=== PATIENT | female | born 1960 | race African-American/Black ===

== ENCOUNTER 2017-01-20 17:30 | Emergency (ER) | payer OTHER, MEDICAID ==
[2017-01-20 17:39] VITALS: BP 151/89
--- NOTE | 2017-01-20 18:47 | ER Document Report ---
HPI - HPI Pain Level: 3 Notes: Patient is a 56-year-old female who presents to the ED complaining of right trapezius muscle tingling along with her right shoulder extends down into the biceps x1d. Patient is not aware of any injury to her shoulder or her neck. Patient states she still able move her head around without any problems along with her arm. She has no sharp pain. Pt states that her bra strap does irritate her skin. Pt states her shoulder feels sore. Her PCM is Dr. Amato through [facility]. Denies any IV drug use or smoking history. Patient states she does have hypertension but no diabetes or other medical conditions. No medicine allergies. No other p.o. daily medications aside from her blood pressure medication. Pt states she is able to ambulate normally without any chest pain, sob, dyspnea. Denies any headache, URI, fever, sore throat, ear pain, dizziness, cp, palp, syncope, cough, sob, wheeze, abd pain, n/v/d, dysuria , joint pains, or rash. Pt is unaware if she had the chicken pox as a child/in the past. No recent illness. Otherwise patient is feeling "normal." - ROS Notes: REVIEW OF SYSTEMS: CONSTITUTIONAL : Denies fever, chills, or sweats. Denies recent illness. EENT: Denies eye, ear, throat, or mouth pain or symptoms. Denies nasal or sinus congestion or discharge. Denies throat, tongue, or mouth swelling or difficulty swallowing. CARDIOVASCULAR: Denies chest pain. Denies palpitations or racing or irregular heart beat. Denies ankle edema. RESPIRATORY: Denies cough, cold, or chest congestion. Denies shortness of breath, difficulty breathing, or wheezing. GASTROINTESTINAL: Denies abdominal pain or distention. Denies nausea, vomiting , or diarrhea. Denies blood in vomitus, stools, or per rectum. Denies black, tarry stools. Denies constipation. GENITOURINARY: Denies difficulty urinating, painful urination, burning, frequency, blood in urine, or discharge. MUSCULOSKELETAL: see hpi SKIN: Denies rash, lesions or sores. NEUROLOGICAL: Denies confusion or altered mental status. Denies passing out or loss of consciousness. Denies dizziness or lightheadedness. Denies headache. Denies weakness or paralysis or loss of use of either side. Denies problems with gait or speech. Denies seizures. See HPI. PSYCHIATRIC: Denies anxiety or stress. Denies depression, suicidal ideation, or homicidal ideation. ALL OTHER SYSTEMS REVIEWED AND NEGATIVE. Dictation was performed using [employer] voice recognition software - REPRODUCTIVE Reproductive: DENIES: : - DERM Skin Color: Normal Past Medical History - Social History Smoking Status: Never Smoker Family History: CAD, DM, Hypertension, Malignancy Patient has suicidal ideation: No Patient has homicidal ideation: No - Past Medical History Cardiac Medical History: Denies: Hx Coronary Artery Disease, Hx Heart Attack, Hx Hypertension Pulmonary Medical History: Reports: Hx Asthma - inhalers, Hx Bronchitis - hx of Denies: Hx COPD, Hx Pneumonia Neurological Medical History: Denies: Hx Cerebrovascular Accident, Hx Seizures Renal/ Medical History: Denies: Hx Peritoneal Dialysis Musculoskeltal Medical History: Reports Hx Arthritis - rt knee Skin Medical History: Reports Hx Eczema Past Surgical History: Reports: Hx Orthopedic Surgery - knee - Immunizations Hx Diphtheria, Pertussis, Tetanus Vaccination: Yes Vertical Provider Document - CONSTITUTIONAL Agree With Documented VS: Yes Notes: PHYSICAL EXAMINATION: GENERAL: Well-appearing, well-nourished and in no acute distress. Obese. HEAD: Atraumatic, normocephalic. Non-tender. EYES: Pupils equal round and reactive to light, extraocular movements intact, sclera anicteric, conjunctiva are normal. ENT: EAC clear b/l. TM's intact b/l without erythema, fluid, or perforation. Nares patent and without discharge. oropharynx clear without exudates. No tonsilar hypertrophy or erythema. Moist mucous membranes. No sinus tenderness. NECK: Normal range of motion, supple without lymphadenopathy. No rigidity/ meningismus or tenderness. Spurling negative. LUNGS: Breath sounds clear to auscultation bilaterally and equal. No wheezes rales or rhonchi. HEART: Regular rate and rhythm without murmurs, rubs, gallops. ABDOMEN: Soft, nontender, nondistended abdomen. No guarding, no rebound. No masses appreciated. Normal bowel sounds present. No CVA tenderness bilaterally. Musculoskeletal: UE's b/l: FROM to passive/active. Strength 5+/5. Non-tender to shoulder/arm/neck. + mild tenderness to trigger point medial scapular border (rt). [employer] strength intact. N/V intact. Extremities: No cyanosis, clubbing, or edema b/l. Peripheral pulses 2+. Capillary refill less than 2 seconds. NEUROLOGICAL: MMSE intact. Cranial nerves grossly intact. Normal speech, normal gait. Normal sensory, motor exams PSYCH: Normal mood, normal affect. SKIN: Warm, Dry, normal turgor, no rashes or lesions noted. - INFECTION CONTROL TRAVEL OUTSIDE OF THE [place] IN LAST 30 DAYS: No - RESPIRATORY O2 Sat by Pulse Oximetry: 98 Course - Re-evaluation Re-evalutation: 01/20/17 18:47 Patient is an afebrile, well-hydrated, 56-year-old female presents with suspected neuritis of her right upper extremity. Vitals are stable. PE otherwise unremarkable for any focal neurological deficits. Low suspicion for any ACS, PE, meningismus, severe disc herniation leading to severe stenosis/ nerve compromise, epidural mass lesion, dissection. I question if this is the start of shingles. Also in my differential would be muscle spasming/trigger point induced, and/or mild c-spine etiology. Pt is neurovascularly intact to the UE b/l. No XR warranted today as exam was unremarkable for her cervical spine and pt neurologically intact. Conservative measures for symptoms. Advised that I would like her to get a f/u with her PCM in 2-3 days. Return to the ED with any worsening/concerning symptoms otherwise as reviewed. Pt in agreement. - Vital Signs Vital signs: Temp Pulse Resp BP Pulse Ox 98.9 F 78 16 151/89 H 98 01/20/17 17:36 01/20/17 17:36 01/20/17 17:36 01/20/17 17:36 01/20/17 17:36 Discharge - Discharge Clinical Impression: Neuralgia and neuritis, unspecified Condition: Stable Disposition: HOME, SELF-CARE Additional Instructions: Rest, Ice Tylenol/ibuprofen as needed Light stretches daily Strength exercises as able May use voltaren gel to help with inflammation pain/discomfort. Moist heat and massage may help Monitor for any development of rash and seek medical attention if anything appears F/u with your PCP in 2-3 days for a recheck Consider consult(s) with Orthopedics for ongoing/worsening symptoms Return to the ED with any worsening symptoms and/or development of fever, headache, chest pain, palpitations, syncope, shortness of breath, trouble breathing, abdominal pain, n/v/d, blood in stool/urine, loss of control of bowel /bladder, urinary retention, muscle weakness/paralysis, worsening numbness/ tingling, or other worsening symptoms that are concerning to you. Prescriptions: Diclofenac Sodium [Voltaren] 4 gm TP QID PRN #100 gel..gm. PRN Reason: Forms: Elevated Blood Pressure
== END 2017-01-20 18:59 | disposition home or self-care (01) ==
LOC: ER 17:30
DX: M79.2 Neuralgia and neuritis, unspecified (principal); I10 Essential (primary) hypertension; Z79.899 Other long term (current) drug therapy; J45.909 Unspecified asthma, uncomplicated
CPT/HCPCS: 99283

== ENCOUNTER 2017-03-25 15:51 | Emergency (ER) | payer OTHER, MEDICAID ==
[2017-03-25 17:14] LABS: APPEARANCE,URINE SLIGHTLY-CLOUDY; BILIRUBIN,URINE NEGATIVE (NEGATIVE); GLUCOSE, URINE NEGATIVE (NEGATIVE); KETONES,URINE NEGATIVE (NEGATIVE); LEUKOCYTE ESTERASE,URINE NEGATIVE (NEGATIVE); NITRITE,URINE NEGATIVE (NEGATIVE); PROTEIN,URINE NEGATIVE (NEGATIVE); URINE SPECIFIC GRAVITY 1.015
--- NOTE | 2017-03-25 17:31 | ER Document Report ---
ED Neck/Back Problem - General Chief Complaint: Back Pain Stated Complaint: BACK PAIN Time Seen by Provider: 03/25/17 16:18 Mode of Arrival: Ambulatory Information source: Patient Notes: Patient is a 56-year-old female who presents to the ER today for 3 days of right lower back pain that does not radiate anywhere. Patient denies any injury , states that it hurts with movement. She denies any numbness, tingling, loss of bladder or bowel function. She denies any chronic back issues. She denies any fevers, chills, headache. TRAVEL OUTSIDE OF THE [place] IN LAST 30 DAYS: No - Related Data Allergies/Adverse Reactions: No Known Allergies Allergy (Verified 01/20/17 17:36) Past Medical History - General Information source: Patient - Social History Smoking Status: Former Smoker Chew tobacco use (# tins/day): No Frequency of alcohol use: None Drug Abuse: None Family History: CAD, DM, Hypertension, Malignancy - Past Medical History Cardiac Medical History: Denies: Hx Coronary Artery Disease, Hx Heart Attack, Hx Hypertension Pulmonary Medical History: Reports: Hx Asthma - inhalers, Hx Bronchitis - hx of Denies: Hx COPD, Hx Pneumonia Neurological Medical History: Denies: Hx Cerebrovascular Accident, Hx Seizures Renal/ Medical History: Denies: Hx Peritoneal Dialysis Musculoskeltal Medical History: Reports Hx Arthritis - rt knee Skin Medical History: Reports Hx Eczema Past Surgical History: Reports: Hx Orthopedic Surgery - knee - Immunizations Hx Diphtheria, Pertussis, Tetanus Vaccination: Yes Review of Systems - Review of Systems Constitutional: No symptoms reported EENT: No symptoms reported Cardiovascular: No symptoms reported Respiratory: No symptoms reported Gastrointestinal: No symptoms reported Genitourinary: No symptoms reported Female Genitourinary: No symptoms reported Musculoskeletal: See HPI Skin: No symptoms reported Hematologic/Lymphatic: No symptoms reported Neurological/Psychological: No symptoms reported Physical Exam - Vital signs Vitals: Temp Pulse Resp BP Pulse Ox 97.9 F 74 20 157/90 H 98 03/25/17 15:57 03/25/17 15:57 03/25/17 15:57 03/25/17 15:57 03/25/17 15:57 - Notes Notes: PHYSICAL EXAMINATION: GENERAL: Mildly uncomfortable appearing, but in no acute distress. HEAD: Atraumatic, normocephalic. EYES: Pupils equal round and reactive to light, extraocular movements intact, sclera anicteric, conjunctiva are normal. NECK: Normal range of motion, supple without lymphadenopathy LUNGS: CTAB and equal. No wheezes rales or rhonchi. HEART: Regular rate and rhythm without murmurs ABDOMEN: Soft, no tenderness. No guarding, no rebound BACK: Right paravertebral tenderness to the lumbar area, no vertebral tenderness , normal ROM GI/: no CVA tenderness EXTREMITIES: Normal range of motion, no pitting edema. No cyanosis. NEUROLOGICAL: Cranial nerves grossly intact. Normal sensory/motor exams. PSYCH: Normal mood, normal affect. SKIN: Warm, Dry, normal turgor, no rashes or lesions noted Course - Re-evaluation Re-evalutation: 03/25/17 17:29 Patient is not tender over the spine, urinalysis is negative for infection or blood today. - Vital Signs Vital signs: Temp Pulse Resp BP Pulse Ox 97.9 F 74 20 157/90 H 98 03/25/17 15:57 03/25/17 15:57 03/25/17 15:57 03/25/17 15:57 03/25/17 15:57 - Laboratory Laboratory results interpreted by me: 03/25/17 16:50 Urine Urobilinogen 2.0 H Discharge - Discharge Clinical Impression: Low back pain Qualifiers: Chronicity: acute Back pain laterality: right Sciatica presence: without sciatica Qualified Code(s): M54.5 - Low back pain Condition: Stable Disposition: HOME, SELF-CARE Instructions: Warm Packs ([facility]), Ice Packs ([facility]) Additional Instructions: Return immediately for any new or worsening symptoms. Follow up with primary care provider, call tomorrow to make followup appointment. Prescriptions: Cyclobenzaprine HCl [Flexeril 10 mg Tablet] 10 mg PO TIDP PRN #15 tab PRN Reason: Ibuprofen [Motrin 600 Mg Tablet] 600 mg PO TID #15 tablet Forms: Return to Work Referrals: FILOMENA LINDSAY DO [Primary Care Provider] - Follow up as needed
[2017-03-25 17:51] VITALS: BP 140/76
== END 2017-03-25 17:52 | disposition home or self-care (01) ==
LOC: ER 15:51
DX: M54.5 Low back pain (principal); Z87.891 Personal history of nicotine dependence
CPT/HCPCS: 81001; 99283

== ENCOUNTER 2018-02-03 09:57 | Emergency (ER) | payer MEDICAID, OTHER ==
--- NOTE | 2018-02-03 10:40 | ER Document Report ---
ED Medical Screen (RME) - General Chief Complaint: Lip Swelling Stated Complaint: SWOLLEN LIP Time Seen by Provider: 02/03/18 10:35 TRAVEL OUTSIDE OF THE [place] IN LAST 30 DAYS: No - HPI Notes: 02/03/18 10:37 Swelling of the upper lip since Sunday has been progressive patient does have a small "bump" that has formed on the right side of the philtrum. Patient otherwise states no shortness of breath or difficulty swallowing. Patient is on hydrochlorothiazide for blood pressure meds DELANEY inhibitor's no arbs 02/03/18 10:40 - Related Data Allergies/Adverse Reactions: No Known Allergies Allergy (Verified 02/03/18 09:58) Past Medical History - Social History Chew tobacco use (# tins/day): No Frequency of alcohol use: None Drug Abuse: None - Past Medical History Cardiac Medical History: Reports: Hx Hypertension Denies: Hx Coronary Artery Disease, Hx Heart Attack Pulmonary Medical History: Reports: Hx Asthma - inhalers, Hx Bronchitis - hx of Denies: Hx COPD, Hx Pneumonia Neurological Medical History: Denies: Hx Cerebrovascular Accident, Hx Seizures Renal/ Medical History: Denies: Hx Peritoneal Dialysis Musculoskeltal Medical History: Reports Hx Arthritis - rt knee Skin Medical History: Reports Hx Eczema Past Surgical History: Reports: Hx Orthopedic Surgery - knee - Immunizations Hx Diphtheria, Pertussis, Tetanus Vaccination: Yes Review of Systems - Review of Systems Constitutional: Other - swelling of the lips Physical Exam - Vital signs Vitals: Temp Pulse Resp BP Pulse Ox 98.6 F 87 20 146/102 H 97 02/03/18 10:08 02/03/18 10:08 02/03/18 10:08 02/03/18 10:08 02/03/18 10:08 - HEENT Notes: Swelling of the upper lip with small bump to the right philtrum Course - Re-evaluation Re-evalutation: 02/03/18 10:40 We will give Benadryl Solu-Medrol Pepcid although the swelling may be due to the bump to the right of the philtrum will send the patient back to the back for further monitoring. - Vital Signs Vital signs: Temp Pulse Resp BP Pulse Ox 98.6 F 87 20 146/102 H 97 02/03/18 10:08 02/03/18 10:08 02/03/18 10:08 02/03/18 10:08 02/03/18 10:08 Doctor's Discharge - Discharge Referrals: FILOMENA LINDSAY, [Primary Care Provider] - Follow up as needed
[2018-02-03] MEDS: DIPHENHYDRAMINE HCL 50 MG/ML VIAL IV ONE (11:10)
[2018-02-03] MEDS: METHYLPREDNISOLONE INJ 125 MG/2 ML SDV IV ONE (11:10)
[2018-02-03] MEDS: FAMOTIDINE INJ/PF 20 MG/2 ML SDV IV ONE (11:10)
[2018-02-03 11:35] LABS: ABSOLUTE EOSINOPHILS # (AUTO) 0.1 10^3/uL (0.0-0.6); ABSOLUTE LYMPHOCYTES (AUTO) 1.5 10^3/uL (0.5-4.7); ABSOLUTE MONOCYTES (AUTO) 0.5 10^3/uL (0.1-1.4); ABSOLUTE NEUT (AUTO) 3.9 10^3/uL (1.7-8.2); BASOPHILS % (AUTO) 0.4 % (0-2); EOSINOPHILS % (AUTO) 2.3 % (0-6); HEMATOCRIT 40.6 % (36.0-47.0); HEMOGLOBIN 13.5 g/dL (12.0-15.5); LYMPHOCYTES % (AUTO) 24.8 % (13-45); MEAN CORPUSCULAR HEMOGLOBIN 27.5 pg (27.0-33.4); MEAN CORPUSCULAR HGB CONC 33.2 g/dL (32.0-36.0); MEAN CORPUSCULAR VOLUME 83 fl (80-97); MONOCYTES % (AUTO) 8.7 % (3-13); PLATELET COUNT 265 10^3/uL (150-450); SEGMENTED NEUTROPHILS % (AUTO) 63.8 % (42-78); TOTAL CELLS COUNTED % (AUTO) 100 %; WHITE BLOOD COUNT 6.1 10^3/uL (4.0-10.5)
--- NOTE | 2018-02-03 11:47 | ER Document Report ---
ED General - General Chief Complaint: Lip Swelling Stated Complaint: SWOLLEN LIP Time Seen by Provider: 02/03/18 10:35 Mode of Arrival: Ambulatory Information source: Patient Notes: 57-year-old female noticed a bump on her right upper lip and she thought it was a pimple and it has gotten larger over the last 3 days. There is no other swelling or itching. It is painful. No fever or chills. TRAVEL OUTSIDE OF THE [place] IN LAST 30 DAYS: No - Related Data Allergies/Adverse Reactions: No Known Allergies Allergy (Verified 02/03/18 09:58) Past Medical History - General Information source: Patient - Social History Smoking Status: Never Smoker Chew tobacco use (# tins/day): No Frequency of alcohol use: None Drug Abuse: None Lives with: Family Family History: CAD, DM, Hypertension, Malignancy Patient has suicidal ideation: No Patient has homicidal ideation: No - Past Medical History Cardiac Medical History: Reports: Hx Hypertension Pulmonary Medical History: Reports: Hx Asthma - inhalers, Hx Bronchitis - hx of Renal/ Medical History: Denies: Hx Peritoneal Dialysis Musculoskeletal Medical History: Reports Hx Arthritis - rt knee Skin Medical History: Reports Hx Eczema Surgical Hx: Negative Past Surgical History: Reports: Hx Orthopedic Surgery - knee - Immunizations Hx Diphtheria, Pertussis, Tetanus Vaccination: Yes Review of Systems - Review of Systems Constitutional: No symptoms reported EENT: See HPI Cardiovascular: No symptoms reported Respiratory: No symptoms reported Gastrointestinal: No symptoms reported Genitourinary: No symptoms reported Female Genitourinary: No symptoms reported Musculoskeletal: No symptoms reported Skin: No symptoms reported Hematologic/Lymphatic: No symptoms reported Neurological/Psychological: No symptoms reported Physical Exam - Vital signs Vitals: Temp Pulse Resp BP Pulse Ox 98.6 F 87 20 146/102 H 97 02/03/18 10:08 02/03/18 10:08 02/03/18 10:08 02/03/18 10:08 02/03/18 10:08 Interpretation: Normal - General General appearance: Appears well, Alert - HEENT Head: Normocephalic, Atraumatic Eyes: Normal Pupils: PERRL Mouth/Lips: Other - Palpable abscess right upper lip with swelling to the lip. No dental infection. Tongue is not swollen in the posterior pharynx is normal.. No: Angioedema - Respiratory Respiratory status: No respiratory distress Chest status: Nontender Breath sounds: Normal Chest palpation: Normal - Cardiovascular Rhythm: Regular Heart sounds: Normal auscultation Murmur: No - Back Back: Normal, Nontender - Extremities General upper extremity: Normal inspection, Nontender, Normal color, Normal ROM , Normal temperature General lower extremity: Normal inspection, Nontender, Normal color, Normal ROM , Normal temperature, Normal weight bearing. No: Juju's sign - Neurological Neuro grossly intact: Yes Cognition: Normal Orientation: AAOx4 Lacey Coma Scale Eye Opening: Spontaneous Parks Coma Scale Verbal: Oriented Lacey Coma Scale Motor: Obeys Commands Parks Coma Scale Total: 15 Speech: Normal Motor strength normal: LUE, RUE, LLE, RLE Sensory: Normal - Psychological Associated symptoms: Normal affect, Normal mood - Skin Skin Temperature: Warm Skin Moisture: Dry Skin Color: Normal Skin irregularity: Abscess Course - Vital Signs Vital signs: Temp Pulse Resp BP Pulse Ox 98.6 F 87 18 141/92 H 100 02/03/18 10:08 02/03/18 10:08 02/03/18 12:01 02/03/18 12:01 02/03/18 12:01 - Laboratory Result Diagrams: 02/03/18 11:20 02/03/18 11:20 Laboratory results interpreted by me: 02/03/18 11:20 RDW 15.0 H Procedures - Incision and Drainage Right Face Time completed: 12:45 Type: Simple Anesthetic type: 1% Lidocaine mL's of anesthetic: 1 Blade size: 11 I&D procedure: Betadine prep applied, Sterile dressing applied, Other - 1/4 packing Incision Method: Incision made by scalpel Amount/type of drainage: large pus Discharge - Discharge Clinical Impression: Upper lip abscess incision and drainage Condition: Good Disposition: HOME, SELF-CARE Instructions: Abscess ([facility]), Acetaminophen, Trimethoprim-Sulfa ([facility]), Warm Packs ([facility]) Additional Instructions: Warm compress Keep the packing in that I placed for 3 days and then you can remove the Tylenol up to 4000 mg per day for discomfort. Septra twice a day for 1 week. Return to the emergency room for any increased pain swelling or fever Prescriptions: Sulfamethoxazole/Trimethoprim [Sulfamethoxazole-Tmp Ds Tablet] 1 each PO BID # 14 tablet Referrals: FILOMENA LINDSAY DO [Primary Care Provider] - Follow up tomorrow
[2018-02-03] MEDS: ACETAMINOPHEN 325 MG TABLET PO ONE (11:56)
[2018-02-03] MEDS: SULFAMETHOXAZOLE/TRIMETHOPRIM 800-160 MG TABLET PO ONE (11:56)
[2018-02-03] MEDS: LIDOCAINE 4%/TETRACAINE 0.5%/EPI 0.18% 5 ML TOPICAL SOLN TOP ONE (11:57)
[2018-02-03 12:01] LABS: ANION GAP 14 (5-19); BLOOD UREA NITROGEN 14 mg/dL (7-20); CALCIUM 10.1 mg/dL (8.4-10.2); CARBON DIOXIDE 29 mmol/L (22-30); CHLORIDE 102 mmol/L (98-107); GLUCOSE 94 mg/dL (75-110); POTASSIUM 3.7 mmol/L (3.6-5.0)
[2018-02-03 12:03] VITALS: BP 141/92
== END 2018-02-03 12:55 | disposition home or self-care (01) ==
LOC: ER 09:57
DX: K13.0 Diseases of lips (principal); I10 Essential (primary) hypertension; J45.909 Unspecified asthma, uncomplicated
CPT/HCPCS: 10060; 99283; 96374; 96375; 36415; 85025; 80048; J1200; J2930; J3490; S0028

== ENCOUNTER 2018-05-26 08:31 | Emergency (ER) | payer MEDICAID, OTHER ==
--- NOTE | 2018-05-26 09:44 | ER Document Report ---
ED General - General Chief Complaint: Abdominal Pain Stated Complaint: ABDOMINAL PAIN Time Seen by Provider: 05/26/18 09:24 TRAVEL OUTSIDE OF THE [place] IN LAST 30 DAYS: No - HPI Notes: Patient is a 57-year-old female that presents to the emergency department for chief complaint of epigastric abdominal pain. About 1 hour prior to arrival patient had acute onset of epigastric abdominal pain. The pain radiated down towards her umbilicus. She states it was sharp and crampy. The pain was constant for about 40 minutes and then completely resolved. Currently the pain is not present. She states that she had relief of the pain after taking Mylanta. Patient reports associated nausea and hot flashes with no diaphoresis or vomiting. She denied any chest pain or shortness of breath. She states that she usually takes omeprazole but missed a dose this morning. Yesterday she did have fried chicken and macaroni and cheese at a restaurant which was a heavier meal than she usually eats. She denies ever having any cardiac disease or getting a stress test performed. Her mother did have an OK at 49 years old. Past Medical History: Hypertension, asthma Past Surgical History: Negative Social History: Quit smoking 20 years ago, denies alcohol and drug use Family History: Reviewed and noncontributory for presenting illness Allergies: Reviewed, see documented allergy list. REVIEW OF SYSTEMS: CONSTITUTIONAL : No fever No chills No diaphoresis No recent illness EENT: No vision changes No congestion No sore throat CARDIOVASCULAR: No chest pain No palpitations RESPIRATORY: No shortness of breath No cough No difficulty breathing GASTROINTESTINAL: abdominal pain nausea No vomiting No diarrhea GENITOURINARY: No dysuria No hematuria No difficulty urinating MUSCULOSKELETAL: No back pain No leg pain No arm pain SKIN: No rashes No lesions LYMPHATIC: No swollen, enlarged glands. NEUROLOGICAL: No lightheadedness No headache No weakness No paresthesias PSYCHIATRIC: No anxiety No depression PHYSICAL EXAMINATION: Vital signs reviewed, nursing noted reviewed. GENERAL: Well-appearing, well-nourished and in no acute distress. HEAD: Atraumatic, normocephalic. EYES: Eyes appear normal, extraocular movements intact, sclera anicteric, conjunctiva are normal. ENT: nares patent, oropharynx clear without exudates. Moist mucous membranes. NECK: Normal range of motion, supple without lymphadenopathy LUNGS: Breath sounds clear to auscultation bilaterally and equal. No wheezes rales or rhonchi. HEART: Regular rate and rhythm without murmurs ABDOMEN: Soft, nontender, normoactive bowel sounds. No rebound, guarding, or rigidity. No masses appreciated. EXTREMITIES: Nontender, good range of motion, no pitting or edema. NEUROLOGICAL: No focal neurological deficits. Moves all extremities spontaneously Motor and sensory grossly intact on exam. PSYCH: Normal mood, normal affect. SKIN: Warm, Dry, normal turgor, no rashes or lesions noted on exposed skin - Related Data Allergies/Adverse Reactions: No Known Allergies Allergy (Verified 02/03/18 09:58) Past Medical History - Social History Smoking Status: Former Smoker Frequency of alcohol use: None Drug Abuse: None Family History: CAD, DM, Hypertension, Malignancy Patient has suicidal ideation: No Patient has homicidal ideation: No - Past Medical History Cardiac Medical History: Reports: Hx Hypertension Denies: Hx Coronary Artery Disease, Hx Heart Attack Pulmonary Medical History: Reports: Hx Asthma - inhalers, Hx Bronchitis - hx of Denies: Hx COPD, Hx Pneumonia Neurological Medical History: Denies: Hx Cerebrovascular Accident, Hx Seizures Renal/ Medical History: Denies: Hx Peritoneal Dialysis Musculoskeletal Medical History: Reports Hx Arthritis - rt knee Skin Medical History: Reports Hx Eczema Past Surgical History: Reports: Hx Orthopedic Surgery - knee - Immunizations Hx Diphtheria, Pertussis, Tetanus Vaccination: Yes Review of Systems - Review of Systems Notes: Dictated Physical Exam - Vital signs Vitals: Temp Pulse Resp BP Pulse Ox 97.7 F 58 L 18 146/96 H 97 05/26/18 08:45 05/26/18 08:45 05/26/18 08:45 05/26/18 08:45 05/26/18 08:45 - Notes Notes: Dictated Course - Re-evaluation Re-evalutation: 05/26/18 09:43 Vitals reviewed. Nursing notes reviewed. EKG shows no acute ischemia or change from prior. Patient is currently asymptomatic. 05/26/18 10:41 Patient reevaluated and it has remained asymptomatic in the emergency room. Her workup today is unremarkable. I did discuss her risk factors for heart disease and atypical presentation of ACS. Patient's heart score is 3 putting her at low risk for MACE in the next 30 days. She does not wish to have a delta troponin. Her symptoms today are likely related to GI upset however I did recommend given her risk factors that she see her primary care doctor and obtain an outpatient stress test for baseline CAD evaluation. Patient was encouraged to continue taking her home omeprazole and do dietary changes. She will return to the emergency room for any new or concerning symptoms. Discharged home in stable condition. Laboratory 05/26/18 05/26/18 05/26/18 09:35 09:35 09:35 WBC 5.9 RBC 4.53 Hgb 12.6 Hct 38.0 MCV 84 MCH 27.7 MCHC 33.1 RDW 14.6 H Plt Count 271 Seg Neutrophils % 71.4 Lymphocytes % 17.9 Monocytes % 6.2 Eosinophils % 4.1 Basophils % 0.4 Absolute Neutrophils 4.2 Absolute Lymphocytes 1.1 Absolute Monocytes 0.4 Absolute Eosinophils 0.2 Absolute Basophils 0.0 Sodium 143.9 Potassium 4.4 Chloride 105 Carbon Dioxide 28 Anion Gap 11 BUN 13 Creatinine 0.63 Est GFR ( Amer) > 60 Est GFR (Non-Af Amer) > 60 Glucose 101 Calcium 9.9 Total Bilirubin 0.6 Direct Bilirubin 0.3 Neonat Total Bilirubin Not Reportable Neonat Direct Bilirubin Not Reportable Neonat Indirect Bili Not Reportable AST 35 ALT 25 Alkaline Phosphatase 79 Troponin I < 0.012 Total Protein 7.8 Albumin 4.1 Lipase 189.2 Urine Color Urine Appearance Urine pH Ur Specific [place] Urine Protein Urine Glucose (UA) Urine Ketones Urine Blood Urine Nitrite Urine Bilirubin Urine Urobilinogen Ur Leukocyte Esterase Urine WBC (Auto) Urine RBC (Auto) Squamous Epi Cells Auto Urine Mucus (Auto) Urine Ascorbic Acid 05/26/18 09:50 WBC RBC Hgb Hct MCV MCH MCHC RDW Plt Count Seg Neutrophils % Lymphocytes % Monocytes % Eosinophils % Basophils % Absolute Neutrophils Absolute Lymphocytes Absolute Monocytes Absolute Eosinophils Absolute Basophils Sodium Potassium Chloride Carbon Dioxide Anion Gap BUN Creatinine Est GFR ( Amer) Est GFR (Non-Af Amer) Glucose Calcium Total Bilirubin Direct Bilirubin Neonat Total Bilirubin Neonat Direct Bilirubin Neonat Indirect Bili AST ALT Alkaline Phosphatase Troponin I Total Protein Albumin Lipase Urine Color YELLOW Urine Appearance SLIGHTLY-CLOUDY Urine pH 5.0 Ur Specific [place] 1.020 Urine Protein NEGATIVE Urine Glucose (UA) NEGATIVE Urine Ketones NEGATIVE Urine Blood NEGATIVE Urine Nitrite NEGATIVE Urine Bilirubin NEGATIVE Urine Urobilinogen 2.0 H Ur Leukocyte Esterase NEGATIVE Urine WBC (Auto) 2 Urine RBC (Auto) 2 Squamous Epi Cells Auto 10 Urine Mucus (Auto) OCC Urine Ascorbic Acid NEGATIVE - Vital Signs Vital signs: Temp Pulse Resp BP Pulse Ox 97.7 F 58 L 18 146/96 H 97 05/26/18 08:45 05/26/18 08:45 05/26/18 08:45 05/26/18 08:45 05/26/18 08:45 - Laboratory Result Diagrams: 05/26/18 09:35 05/26/18 09:35 Laboratory results interpreted by me: 05/26/18 05/26/18 09:35 09:50 RDW 14.6 H Urine Urobilinogen 2.0 H - Diagnostic Test Radiology reviewed: Image reviewed - EKG Interpretation by Me Additional EKG results interpreted by me: 05/26/18 09:39 Interpreted by myself [id number]: Sinus bradycardia, rate 57, normal axis, no ectopy, no ST elevation, no significant change from 06/21/15 Discharge - Discharge Clinical Impression: Epigastric abdominal pain Condition: Stable Disposition: HOME, SELF-CARE Instructions: Abdominal Pain ([facility]) Additional Instructions: Please return to the emergency department if you have any worsening, or concern of your symptoms. Please return to the emergency department if you develop chest pain, difficulty breathing, severe abdominal pain, or ongoing vomiting. Please follow-up with your primary care physician in 2-3 days and any other recommended physicians. If prescribed, take all medications as directed. If you have any questions or concerns do not hesitate to return the emergency department for evaluation. [] Referrals: FILOMENA LINDSAY DO [Primary Care Provider] - Follow up in 3-5 days
[2018-05-26 09:52] LABS: ABSOLUTE EOSINOPHILS # (AUTO) 0.2 10^3/uL (0.0-0.6); ABSOLUTE LYMPHOCYTES (AUTO) 1.1 10^3/uL (0.5-4.7); ABSOLUTE MONOCYTES (AUTO) 0.4 10^3/uL (0.1-1.4); ABSOLUTE NEUT (AUTO) 4.2 10^3/uL (1.7-8.2); BASOPHILS % (AUTO) 0.4 % (0-2); EOSINOPHILS % (AUTO) 4.1 % (0-6); HEMOGLOBIN 12.6 g/dL (12.0-15.5); LYMPHOCYTES % (AUTO) 17.9 % (13-45); MEAN CORPUSCULAR HEMOGLOBIN 27.7 pg (27.0-33.4); MEAN CORPUSCULAR HGB CONC 33.1 g/dL (32.0-36.0); MEAN CORPUSCULAR VOLUME 84 fl (80-97); MONOCYTES % (AUTO) 6.2 % (3-13); PLATELET COUNT 271 10^3/uL (150-450); RED BLOOD COUNT 4.53 10^6/uL (3.72-5.28); RED CELL DISTRIBUTION WIDTH 14.6 % (11.5-14.0); SEGMENTED NEUTROPHILS % (AUTO) 71.4 % (42-78); TOTAL CELLS COUNTED % (AUTO) 100 %; WHITE BLOOD COUNT 5.9 10^3/uL (4.0-10.5)
--- NOTE | 2018-05-26 10:06 | EKG REPORT ---
SEVERITY:- NORMAL ECG - SINUS RHYTHM : Confirmed by: Miguel Angel Patricia MD 26-May-2018 10:05:18
[2018-05-26 10:09] LABS: ALANINE AMINOTRANSFERASE 25 U/L (9-52); ALBUMIN 4.1 g/dL (3.5-5.0); ALKALINE PHOSPHATASE 79 U/L (38-126); ANION GAP 11 (5-19); ASPARTATE AMINO TRANSFERASE 35 U/L (14-36); BILIRUBIN,DIRECT 0.3 mg/dL (0.0-0.4); BILIRUBIN,TOTAL 0.6 mg/dL (0.2-1.3); BLOOD UREA NITROGEN 13 mg/dL (7-20); CALCIUM 9.9 mg/dL (8.4-10.2); CARBON DIOXIDE 28 mmol/L (22-30); CHLORIDE 105 mmol/L (98-107); GLUCOSE 101 mg/dL (75-110); LIPASE 189.2 U/L (23-300); POTASSIUM 4.4 mmol/L (3.6-5.0); SODIUM 143.9 mmol/L (137-145); TOTAL PROTEIN 7.8 g/dL (6.3-8.2)
[2018-05-26 10:13] LABS: APPEARANCE,URINE SLIGHTLY-CLOUDY; BILIRUBIN,URINE NEGATIVE (NEGATIVE); COLOR,URINE YELLOW; GLUCOSE, URINE NEGATIVE (NEGATIVE); KETONES,URINE NEGATIVE (NEGATIVE); LEUKOCYTE ESTERASE,URINE NEGATIVE (NEGATIVE); NITRITE,URINE NEGATIVE (NEGATIVE); PROTEIN,URINE NEGATIVE (NEGATIVE)
--- NOTE | 2018-05-26 10:48 | RADIOLOGY REPORT (SQ) ---
EXAM DESCRIPTION: CHEST SINGLE VIEW COMPLETED DATE/TIME: 05/26/2018 10:27 am REASON FOR STUDY: epigastric pain COMPARISON: 2015. NUMBER OF VIEWS: One view. TECHNIQUE: Single frontal radiographic view of the chest acquired. LIMITATIONS: None. FINDINGS: LUNGS AND PLEURA: No opacities, masses or pneumothorax. No pleural effusion. MEDIASTINUM AND HILAR STRUCTURES: No masses. Contour normal. HEART AND VASCULAR STRUCTURES: Heart normal in size. Normal vasculature. BONES: No acute findings. HARDWARE: None in the chest. OTHER: No other significant finding. IMPRESSION: NO SIGNIFICANT RADIOGRAPHIC FINDING IN THE CHEST. TECHNICAL DOCUMENTATION: JOB ID: [id number] [employer]- All Rights Reserved Reading location - IP/workstation name: [email or web address]
[2018-05-26 11:22] VITALS: BP 148/93
== END 2018-05-26 11:25 | disposition home or self-care (01) ==
LOC: ER 08:31
DX: R10.13 Epigastric pain (principal); R11.0 Nausea; R00.1 Bradycardia, unspecified; I10 Essential (primary) hypertension; J45.909 Unspecified asthma, uncomplicated; Z79.899 Other long term (current) drug therapy; Z87.891 Personal history of nicotine dependence
CPT/HCPCS: 36415; 71045; 80053; 81001; 83690; 84484; 85025; 93005; 93010; 99284

== ENCOUNTER 2019-12-04 11:51 | Emergency (ER) | payer OTHER ==
[2019-12-04] MEDS ORDERED: OXYCODONE HCL IR 5 MG TABLET PO ONE (12:20)
[2019-12-04] MEDS ORDERED: METHOCARBAMOL 750 MG TABLET PO ONE (12:20)
[2019-12-04] MEDS ORDERED: IBUPROFEN 800 MG TABLET PO ONE (12:36)
--- NOTE | 2019-12-04 12:36 | ER Document Report ---
Entered by CATHY RANDLE SCRIBE 12/04/19 1228 Acting as scribe for:HAILEY SEQUEIRA MD ED Fall - General Chief Complaint: Fall Injury Stated Complaint: FELL - BACK PAIN/INJURY Time Seen by Provider: 12/04/19 11:56 Primary Care Provider: FILOMENA LINDSAY DO [Primary Care Provider] - Follow up as needed Information source: Patient Notes: This 59 year old female patient presents to the emergency department today with back pain resulting from a mechanical fall just prior to arrival. Patient reports that she got in her car to leave for work and she realized that she left her coffee inside the house. Patient reports that she went back in the house to retrieve her coffee. Patient reports that her boots were wet from the rain and when she stepped on her tile frances her feet slipped out from under her, causing her to land on her buttocks. Patient only complains of mid to lower back pain. TRAVEL OUTSIDE OF THE [place] IN LAST 30 DAYS: No - Related data Allergies/Adverse Reactions: No Known Allergies Allergy (Verified 02/03/18 09:58) Home Medications: hctz, proair inh prn Past Medical History - General Information source: Patient - Social History Smoking Status: Former Smoker Cigarette use (# per day): No Chew tobacco use (# tins/day): No Frequency of alcohol use: None Drug Abuse: None Lives with: Family Family History: Reviewed & Not Pertinent, CAD, DM, Hypertension, Malignancy Patient has homicidal ideation: No - Past Medical History Cardiac Medical History: Reports: Hx Hypertension Pulmonary Medical History: Reports: Hx Asthma - inhalers, Hx Bronchitis Musculoskeletal Medical History: Reports Hx Arthritis - rt knee Skin Medical History: Reports Hx Eczema Past Surgical History: Reports: Hx Orthopedic Surgery - rt knee - Immunizations Hx Diphtheria, Pertussis, Tetanus Vaccination: Yes Review of Systems - Review of Systems Constitutional: No symptoms reported EENT: No symptoms reported Cardiovascular: No symptoms reported Respiratory: No symptoms reported Gastrointestinal: No symptoms reported Genitourinary: No symptoms reported Female Genitourinary: No symptoms reported Musculoskeletal: See HPI, Back pain Skin: No symptoms reported Hematologic/Lymphatic: No symptoms reported Neurological/Psychological: No symptoms reported -: Yes All other systems reviewed and negative Physical Exam - Vital signs Vitals: Temp Pulse Resp BP Pulse Ox 98.5 F 103 H 18 180/95 H 98 05/21/20 11:55 12/04/19 11:55 12/04/19 11:55 12/04/19 11:55 12/04/19 11:55 - Notes Notes: Physical Exam: General: Alert, appears well. HEENT: Normocephalic. Atraumatic. PERRL. Extraocular movements intact. Oropharynx clear. Neck: Supple. Non-tender. Respiratory: No respiratory distress. Clear and equal breath sounds bilaterally. Cardiovascular: Regular rate and rhythm. Abdominal: Normal Inspection. Non-tender. No distension. Normal Bowel Sounds. Back: Tenderness with palpation over the spinous process of T10 with associated tenderness laterally out to the right over the posterior ribs. Extremities: Moves all four extremities. Upper extremities: Normal inspection. Normal ROM. Lower extremities: Normal inspection. No edema. Normal ROM. Neurological: Normal cognition. AAOx4. Normal speech. Psychological: Normal affect. Normal Mood. Skin: Warm. Dry. Normal color. Course - Vital Signs Vital signs: Temp Pulse Resp BP Pulse Ox 98.5 F 103 H 18 180/95 H 98 12/04/19 12:06 12/04/19 11:55 12/04/19 11:55 12/04/19 11:55 12/04/19 11:55 - Diagnostic Test Radiology reviewed: Image reviewed, Reports reviewed - Thoracic spine x-ray does not show acute fracture or injury. Discharge - Discharge Clinical Impression: Strain of muscle and tendon of back wall of thorax, initial encounter Condition: Stable Disposition: HOME, SELF-CARE Additional Instructions: Muscle Strain You have strained a muscle -- torn the fibers within the muscle. This often occurs with strenuous exertion, or during an injury that suddenly stretches the muscle. The seriousness of a strain varies. Some strains heal within days, others cause problems for months. X-rays cannot show a muscle strain. X-rays are taken only if symptoms suggest that a fracture could be present. The usual treatment of a muscle strain is rest and ice packs. Sometimes, a sling, splint, or crutches may be necessary to rest the muscle. The muscle can be used again once pain subsides. Severe strains require a special exercise and stretching program to prevent permanent stiffness and disability. Your doctor will advise you if this will be necessary. Call the doctor immediately if pain or swelling becomes severe, or if numbness or discoloration develop. Your x-ray did not show evidence of bony injury. Your physical exam is most consistent with a strain of the muscles in your right lower thoracic back. Take the Robaxin/methocarbamol muscle relaxer as prescribed. Take ibuprofen every 8 hours for pain if needed. Try ice packs to the painful muscles for the next few days. Follow-up with your primary care provider if not improving. RETURN TO THE EMERGENCY ROOM IF ANY NEW OR WORSENING SYMPTOMS. Prescriptions: Methocarbamol [Robaxin 750 mg Tablet] 750 mg PO ASDIR PRN #40 tablet PRN Reason: Forms: Return to Work Referrals: FILOMENA LINDSAY, [Primary Care Provider] - Follow up as needed I personally performed the services described in the documentation, reviewed and edited the documentation which was dictated to the scribe in my presence, and it accurately records my words and actions.
--- NOTE | 2019-12-04 13:00 | RADIOLOGY REPORT (SQ) ---
EXAM DESCRIPTION: T SPINE AP/LAT IMAGES COMPLETED DATE/TIME: 12/04/2019 12:44 pm REASON FOR STUDY: Fall,axial loading, pain at T10 region COMPARISON: None. NUMBER OF VIEWS: Two views. TECHNIQUE: AP and lateral radiographic images acquired of the thoracic spine. LIMITATIONS: None. FINDINGS: MINERALIZATION: Normal. ALIGNMENT: Normal. No scoliosis. VERTEBRAE: No fracture or bone lesion. Maintained height, normal segmentation. DISCS: Multilevel disc space narrowing with osteophytes. HARDWARE: None in the spine. MEDIASTINUM AND SOFT TISSUES: Normal heart size and aortic contour. No soft tissue abnormality. VISUALIZED LUNG MARQUEZ: Clear. OTHER: No other significant finding. IMPRESSION: SPONDYLOSIS WITHOUT BONE LESION OR FRACTURE. TECHNICAL DOCUMENTATION: JOB ID: [id number] [employer]- All Rights Reserved Reading location - IP/workstation name: [email or web address]
[2019-12-04 13:58] VITALS: BP 149/100
== END 2019-12-04 13:52 | disposition home or self-care (01) ==
LOC: ER 11:51
DX: S29.012A Strain of muscle and tendon of back wall of thorax, initial encounter (principal); M54.9 Dorsalgia, unspecified; M54.5 Low back pain; W01.0XXA Fall on same level from slipping, tripping and stumbling without subsequent striking against object, initial encounter; Z79.899 Other long term (current) drug therapy; Z87.891 Personal history of nicotine dependence; I10 Essential (primary) hypertension; J45.909 Unspecified asthma, uncomplicated
CPT/HCPCS: 99283; 72070; J3490